=== PATIENT | male | born 1950 | race Caucasian/White ===

== ENCOUNTER 2023-11-01 07:06 | Emergency (ER) | payer MEDICARE ==
--- NOTE | 2023-11-01 07:31 | ED Physician Documentation ---
PD HPI URI - Stated complaint Stated Complaint: HIGH HR/COUGH - Chief complaint Chief Complaint: Cardiac - History obtained from History obtained from: Patient - History of Present Illness Timing - onset: How many hours ago (just in past couple of hurs. Feeling of flutter/tightness in chest. Has watch that tells HR and was 120-150s variable. Has not had this previously.), Today Timing duration: Hours (couple of hours now this moring. Did not have it last evening/yesterday. Has had cough for 2-3 weeks after URI type symptoms but very persistent and frequent cough persists.) Timing details: Abrupt onset, Still present Associated symptoms: Dry cough, Dyspnea, Other (he has noted some dyspnea with activity the past few weeks timing with the cough?URI illness. No chest pain per se. No edema/orthopnea.). No: Fever, Chills, Productive cough, Hemoptysis, Chest pain (but onset of fluttering/unusual feeling in chest this morning.), NVD Contributing factors: No: Sick contact, COPD / asthma Similar symptoms before: Has not had sx before Recently seen: Not recently seen Review of Systems Constitutional: denies: Fever, Chills Cardiac: reports: Palpitations. denies: Pedal edema Respiratory: reports: Dyspnea, Cough. denies: Wheezing PD PAST MEDICAL HISTORY - Past Medical History Cardiovascular: Hypertension Respiratory: None Neuro: Migraines Endocrine/Autoimmune: None GI: GERD : None HEENT: None Psych: None Musculoskeletal: Osteoarthritis, Chronic back pain Derm: None - Past Surgical History Past Surgical History: Yes - Present Medications Home Medications: Ambulatory Orders Medication Instructions Recorded Confirmed Acyclovir 400 mg PO DAILY PRN 01/30/15 11/01/23 Cetirizine HCl [Zyrtec] 10 mg PO DAILY PRN 01/30/15 11/01/23 Cholecalciferol (Vitamin D3) 1 tab PO DAILY 01/30/15 11/01/23 [Vitamin D] Cyclobenzaprine [Flexeril] 10 mg PO TID PRN 01/30/15 11/01/23 Fluticasone [Flonase] 2 spray IN DAILY 01/30/15 11/01/23 Losartan [Cozaar] 100 mg PO DAILY 01/30/15 11/01/23 hydroCHLOROthiazide 12.5 mg PO DAILY 01/30/15 11/01/23 [Hydrochlorothiazide] Albuterol Sulf [Ventolin Hfa 2 - 3 puffs INH QID 10 Days #1 each 11/01/23 Inhaler] Aspirin EC [Ecotrin] 81 mg PO DAILY #60 tablet 11/01/23 Atorvastatin [Lipitor] 20 mg PO QPM 11/01/23 11/01/23 Magnesium Glycinate, Mag Oxide 240 mg PO DAILY 11/01/23 11/01/23 [Magnesium Glycinate] Metoprolol Succinate [Toprol Xl] 25 mg PO DAILY #30 tablet 11/01/23 Propranolol HCl 20 mg PO BID 11/01/23 11/01/23 Riboflavin (Vitamin B2) [Vitamin 100 mg PO DAILY 11/01/23 11/01/23 B2] dexAMETHasone [Decadron] 4 mg PO DAILY #5 tablet 11/01/23 - Allergies Allergies/Adverse Reactions: Allergies Allergy/AdvReac Type Severity Reaction Status Date / Time doxazosin AdvReac Unknown Unknown Verified 11/01/23 07:14 fosinopril sodium * AdvReac Unknown Unknown Verified 11/01/23 07:14 [From Monopril] metoprolol AdvReac Unknown Unknown Verified 11/01/23 07:14 scopolamine AdvReac Unknown Unknown Verified 11/01/23 07:14 [From Transderm-Scop] - Social History Does the pt smoke?: No Smoking Status: Never smoker Does the pt drink ETOH?: Yes Does the pt have substance abuse?: No - Immunizations Immunizations are current?: Yes - POLST Patient has POLST: No PD ED PE NORMAL - Vitals Vital signs reviewed: Yes (monitor shoiwng atrial fib with fast rate 120-150s.) - General General: Alert and oriented X 3, No acute distress, Well developed/nourished - Neck Neck: Supple, no meningeal sign, No adenopathy - Cardiac Cardiac: No murmur. No: RRR - Respiratory Respiratory: No respiratory distress, Clear bilaterally - Abdomen Abdomen: Soft, Non tender - Derm Derm: Normal color, Warm and dry - Extremities Extremities: Normal ROM s pain, No edema, No calf tenderness / cord - Neuro Neuro: Alert and oriented X 3, No motor deficit, Normal speech - Psych Psych: Normal mood Results - Vitals Vitals: Vital Signs - 24 hr 11/01/23 11/01/23 11/01/23 10:47 10:50 10:54 Temperature 37 C 37 C Heart Rate 94 88 88 Respiratory 20 24 22 Rate Blood Pressure 130/74 112/73 120/79 O2 Saturation 97 97 94 If not protocol 3 3 : Oxygen Flow, liters/minute 11/01/23 11/01/23 10:57 11:24 Temperature Heart Rate 80 89 Respiratory 20 16 Rate Blood Pressure 110/73 O2 Saturation 96 If not protocol : Oxygen Flow, liters/minute Oxygen O2 Source Room air - EKG (time done) 07:24 EKG releavant findings:: EKG personally interpreted by author of this note. Relevant findings are: Rate: Rate (enter#) (122) Rhythm: Atrial fibrillation Intervals: No: Wide QRS Ischemia: Normal ST segments, ST depression (mild nonspecific changes liekly rate related. ). No: ST elevation c/w ischemia, ST elevation c/w repol 11:11 EKG releavant findings:: EKG personally interpreted by author of this note. Relevant findings are: Rhythm: NSR [place]: Normal Intervals: Normal [place] QRS: Normal Ischemia: Normal ST segments. No: ST elevation c/w ischemia, ST depression - Labs Labs: Laboratory Tests 11/01/23 11/01/23 11/01/23 07:50 07:50 07:50 WBC 6.0 RBC 5.01 Hgb 15.7 Hct 45.5 MCV 90.8 MCH 31.3 H MCHC 34.5 RDW 12.7 Plt Count 150 MPV 8.9 Neut # (Auto) 3.7 Lymph # (Auto) 1.2 L [place] # (Auto) 0.9 Eos # (Auto) 0.1 Baso # (Auto) 0.0 Absolute Nucleated RBC 0.00 Nucleated RBC % 0.0 Sodium 140 Potassium 3.6 Chloride 106 Carbon Dioxide 27 Anion Gap 7.0 BUN 25 H Creatinine 1.0 Estimated GFR (MDRD) 73 L Glucose 104 Calcium 9.6 Magnesium 1.7 Total Bilirubin 1.0 AST 15 ALT 20 Alkaline Phosphatase 76 Troponin I High Sens 10.9 B-Natriuretic Peptide 43 Total Protein 6.5 Albumin 3.7 Globulin 2.8 Albumin/Globulin Ratio 1.3 Lipase 28 - Rads (name of study) chest xray Relevant Findings:: Prelim report reviewed, EMP independent interpretation of test (no acute process) Procedures - Procedural sedation Sedation prep: Informed consent, Time out completed, Last meal (last evening dinner), PE performed, ASA 2 - mild disease Sedation Medications: propofol Mallampati classification: I Patient status during sedation: Responds to tactile, Maintained airway, Recovered uneventfully Sedation recovery: Recovered uneventfully, Back to baseline Time in sedation (Minutes): 8 - Cardioversion - Major first Indication: Tachyarrhythmia Risks, benefits, alternatives explained to: Pt Prep: IV, O2, air sampling and monitoring, Pulse ox, Airway equip CS via: Pads, AP approach Sync: 150j Post cardioversion rhythm: NSR Performed by: ED MD Medical Decision Making - ED course Complexity details: reviewed results, re-evaluated patient (feels moderately improved with IV fluid and metoprolol but HR still 110-120 after 2 doses. Discussed with pt and options of cardioversion and they are in consent/agreement. ), considered differential (apparent new onset atrial fib this morning. No clear anginal symptoms but some MIRANDA recent weeks, along with very bothersome cough few wks as well.), d/w patient Departure - Departure Disposition: 01 Home, Self Care Clinical Impression: Persistent cough, New onset atrial fibrillation Condition: Stable Record reviewed to determine appropriate education?: Yes Instructions: ED Afib Follow-Up: OMAR DE LA CRUZ DO [Primary Care Provider] - [facility] [Provider Group] Prescriptions: dexAMETHasone [Decadron] 4 mg PO DAILY #5 tablet Aspirin EC [Ecotrin] 81 mg PO DAILY #60 tablet Metoprolol Succinate [Toprol Xl] 25 mg PO DAILY #30 tablet Albuterol Sulf [Ventolin Hfa Inhaler] 2 - 3 puffs INH QID 10 Days #1 each Comments: You were in a fast rate atrial fibrillation and have been cardioverted back to a normal rhythm. At this point we will try to maintain it that way. Common we used our beta-blockers. However the propranolol that you take is sometimes not as effective at rate can troll as it is for blood pressure. Turnaround Planner often like metoprolol instead. Will start with a low-dose of that and see how it does for you. Stay well-hydrated otherwise. Your electrolytes of potassium and magnesium were in the normal range on blood testing though on the lower end. For the next week or so you might consider a potassium and magnesium [id number] supplements in addition to any multivitamin you might already take. Call your primary care for further workup., Common further evaluation can include wearing a heart monitor for a week or so to see if you have periods of fibrillation that you are not aware of (Holter monitor, Zio patch are common and namebrand). Additionally an ultrasound of the heart called an echocardiogram is often done. They may also consider stress testing to ensure there is no ischemic heart disease as well. These do not need to be done immediately but commonly in the near future in the next week or 2. Regarding your cough, your chest x-ray is clear without any signs of pneumonia. It does not sound bacterial per se. Consideration would be a postviral persistent inflammation and irritation. We can try combination of an albuterol inhaler along with Decadron steroid over the next 5 or 6 days and see if it tapers down quite a bit and proves. Follow-up with your primary care in the next week or so, call for an appointment. Return to the ER as needed. I sent your prescriptions to the [email or web address] pharmacy in [place]. Forms: PCP List Discharge Date/Time: 11/01/23 12:19
[2023-11-01 08:09] LABS: BASOPHILS % (AUTO) 0.7 %; EOSINOPHILS # (AUTO) 0.1 10^3/uL (0.0-0.7); HCT - HEMATOCRIT 45.5 % (42.0-52.0); HGB - HEMOGLOBIN 15.7 g/dL (14.0-18.0); LYMPHOCYTES # (AUTO) 1.2 10^3/uL (1.5-3.5); LYMPHOCYTES % (AUTO) 19.4 %; MEAN CORPUSCULAR HEMOGLOBIN 31.3 pg (27.0-31.0); MEAN CORPUSCULAR HGB CONC 34.5 g/dL (32.0-36.0); MEAN CORPUSCULAR VOLUME 90.8 fL (80.0-94.0); MEAN PLATELET VOLUME 8.9 fL (7.4-11.4); MONOCYTES # (AUTO) 0.9 10^3/uL (0.0-1.0); MONOCYTES % (AUTO) 15.1 %; NEUTROPHILS # (AUTO) 3.7 10^3/uL (1.5-6.6); NEUTROPHILS % (AUTO) 62.5 %; PLT - PLATELET COUNT 150 10^3/uL (130-450); RED BLOOD COUNT 5.01 10^6/uL (4.70-6.10); RED CELL DISTRIBUTION WIDTH 12.7 % (12.0-15.0)
[2023-11-01] MEDS: SODIUM CHLORIDE 0.9% 1,000 ML IV STA (08:14)
[2023-11-01] MEDS: METOPROLOL 5 MG/5 ML VIAL IVP STA ×2 (08:17→09:21)
--- NOTE | 2023-11-01 08:24 | XRAY Report ---
PROCEDURE: Chest 1V INDICATIONS: Chest Pain TECHNIQUE: One view of the chest was acquired. COMPARISON: None FINDINGS: Surgical changes and devices: None. Lungs and pleura: No dense consolidation. No pleural effusion. Lung volumes are mildly low. Mediastinum: Normal heart size Bones and chest wall: Degenerative changes. IMPRESSION: No acute radiographic abnormality on this limited single view portable study. Reviewed by: Foreign Rinaldi MD on 11/01/2023 8:23 AM [facility] Approved by: Foreign Rinaldi MD on 11/01/2023 8:23 AM PST Station ID: [id number]
[2023-11-01 08:30] LABS: ALBUMIN 3.7 g/dL (3.2-5.5); ALBUMIN/GLOBULIN RATIO 1.3 (1.0-2.2); CALCIUM 9.6 mg/dL (8.5-10.3); MAGNESIUM 1.7 mg/dL (1.7-2.3); POTASSIUM 3.6 mmol/L (3.5-4.5); TOTAL PROTEIN 6.5 g/dL (6.4-8.9); TROPONIN I HIGH SENSITIVITY 10.9 ng/L (2.3-19.7)
[2023-11-01] MEDS: PROPOFOL 200 MG/20 ML VIAL IVP STA (10:45)
[2023-11-01] MEDS: METOPROLOL SUCCINATE 25 MG TABLET PO STA (11:23)
[2023-11-01 11:28] VITALS: BP 110/73; O2SAT 96
[2023-11-01] MEDS: dexAMETHasone 4 MG TABLET PO STA (12:12)
== END 2023-11-01 12:19 | disposition home or self-care (01) ==
LOC: SUPCPDRO 07:06 → ED 07:06
DX: I48.91 Unspecified atrial fibrillation (principal); E87.6 Hypokalemia; E83.42 Hypomagnesemia; R05.9 Cough, unspecified; R06.09 Other forms of dyspnea; I10 Essential (primary) hypertension
CPT/HCPCS: 36415; 71045; 80053; 83690; 83735; 83880; 84484; 85025; 92960; 93005; 96361; 96374; 96376; 99284; 99285; A9270; J8540